=== PATIENT | female | born 1955 | race Caucasian/White ===

== ENCOUNTER 2017-03-01 13:10 | Emergency (ER) | payer BC ==
[2017-03-01] MEDS ORDERED: PROMETHAZINE HCL 25 MG TABLET PO ONE (13:53)
[2017-03-01] MEDS ORDERED: DIPHENHYDRAMINE HCL 50 MG/ML VIAL IV ONE ×2 (13:54→18:36)
--- NOTE | 2017-03-01 13:54 | ER Document Report ---
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 Patient was recently diagnosed with a possible UTI and started on Bactrim last night. She states within 10 minutes, she started having diffuse itching followed by cramping and nausea. TRAVEL OUTSIDE OF THE [place] IN LAST 30 DAYS: No - Related Data Allergies/Adverse Reactions: aspirin [Aspirin] Adverse Reaction (Mild, Verified 03/01/17 13:17) rash Sulfa (Sulfonamide Antibiotics) Adverse Reaction (Verified 03/01/17 13:51) Past Medical History - Social History Frequency of alcohol use: None Drug Abuse: None Renal/ Medical History: Denies: Hx Peritoneal Dialysis Malignancy Medical History: Reports: Hx Cervical Cancer GI Medical History: Reports: Hx Gastroesophageal Reflux Disease Musculoskeltal Medical History: Reports Hx Arthritis Psychiatric Medical History: Reports: Hx Depression - anxiety Past Surgical History: Reports: Hx Appendectomy, Hx Section, Hx Hysterectomy, Hx Tonsillectomy - Immunizations Hx Diphtheria, Pertussis, Tetanus Vaccination: Yes Physical Exam - Vital signs Vitals: Temp Pulse Resp BP Pulse Ox 98.9 F 86 20 108/81 99 03/01/17 13:17 03/01/17 13:17 03/01/17 13:17 03/01/17 13:17 03/01/17 13:17 Course - Vital Signs Vital signs: Temp Pulse Resp BP Pulse Ox 98.9 F 86 20 108/81 99 03/01/17 13:17 03/01/17 13:17 03/01/17 13:17 03/01/17 13:17 03/01/17 13:17
[2017-03-01] MEDS: NORMAL SALINE 1000 ML 1,000 ML IV PRN ×2 (14:53→16:40)
[2017-03-01 14:56] LABS: ABSOLUTE EOSINOPHILS # (AUTO) 0.1 10^3/uL (0.0-0.6); ABSOLUTE LYMPHOCYTES (AUTO) 0.9 10^3/uL (0.5-4.7); ABSOLUTE MONOCYTES (AUTO) 0.3 10^3/uL (0.1-1.4); ABSOLUTE NEUT (AUTO) 4.6 10^3/uL (1.7-8.2); BASOPHILS % (AUTO) 0.2 % (0-2); EOSINOPHILS % (AUTO) 1.5 % (0-6); HEMATOCRIT 43.9 % (36.0-47.0); HEMOGLOBIN 14.8 g/dL (12.0-15.5); HGB HCT DIFFERENCE 0.5; MEAN CORPUSCULAR HEMOGLOBIN 27.8 pg (27.0-33.4); MEAN CORPUSCULAR HGB CONC 33.6 g/dL (32.0-36.0); MEAN CORPUSCULAR VOLUME 83 fl (80-97); MONOCYTES % (AUTO) 5.9 % (3-13); RED BLOOD COUNT 5.32 10^6/uL (3.72-5.28); RED CELL DISTRIBUTION WIDTH 14.6 % (11.5-14.0); SEGMENTED NEUTROPHILS % (AUTO) 77.4 % (42-78); WHITE BLOOD COUNT 5.9 10^3/uL (4.0-10.5)
[2017-03-01 15:09] LABS: ALANINE AMINOTRANSFERASE 55 U/L (9-52); ALBUMIN 4.5 g/dL (3.5-5.0); ALKALINE PHOSPHATASE 92 U/L (38-126); ANION GAP 10 (5-19); ASPARTATE AMINO TRANSFERASE 38 U/L (14-36); BILIRUBIN,DIRECT 0.6 mg/dL (0.0-0.4); BILIRUBIN,TOTAL 1.1 mg/dL (0.2-1.3); BLOOD UREA NITROGEN 8 mg/dL (7-20); CALCIUM 10.1 mg/dL (8.4-10.2); CARBON DIOXIDE 26 mmol/L (22-30); CHLORIDE 102 mmol/L (98-107); CREATININE RESULT 0.86 mg/dL (0.52-1.25); GLUCOSE 110 mg/dL (75-110); POTASSIUM 3.7 mmol/L (3.6-5.0); SODIUM 138.1 mmol/L (137-145)
[2017-03-01 15:42] LABS: APPEARANCE,URINE CLEAR; BILIRUBIN,URINE NEGATIVE (NEGATIVE); GLUCOSE, URINE NEGATIVE (NEGATIVE); KETONES,URINE NEGATIVE (NEGATIVE); LEUKOCYTE ESTERASE,URINE NEGATIVE (NEGATIVE); NITRITE,URINE NEGATIVE (NEGATIVE); PROTEIN,URINE NEGATIVE (NEGATIVE); URINE SPECIFIC GRAVITY 1.013; UROBILINOGEN,URINE NEGATIVE mg/dL (<2.0)
--- NOTE | 2017-03-01 15:57 | ER Document Report ---
ED General - General Mode of Arrival: Ambulatory Information source: Patient, Relative - Spouse TRAVEL OUTSIDE OF THE [place] IN LAST 30 DAYS: No - HPI Onset: Yesterday - Refer to HPI notes Quality of pain: Cramping Similar symptoms previously: No Recently seen / treated by doctor: Yes <FELISA CHRISTENSEN - Last Filed: 03/01/17 19:21> <SHELIAANDREINAMONY - Last Filed: 03/01/17 21:37> - General Chief Complaint: Headache Stated Complaint: HEADACHE,BACK PAIN,NAUSEA Notes: Patient is a 62-year-old female presented to the emergency department for itching, cramping, and headache after taking Bactrim. Patient states that she took her first dose of Bactrim last night around 18:00 and her symptoms were onset 10 minutes after. Patient states she was diagnosed with a UTI by [facility] and prescribed Bactrim. Patient only took the initial dose yesterday and has not taken any further doses. Patient states that she had some itching on her hands and forearms and the right side of her body had muscle cramps. Patient also complains to a headache which she describes as pressure and relates her head pain to a previous migraine. Patient states that she does not get migraines or headaches like this when she has her chronic nerve pain. Patient does complain of some dizziness which is chronic. Patient states that she has chronic neuropathic pain to the right side of her body from a previous fall. Patient denies taking any muscle examiners. (FELISA CHRISTENSEN) - Related Data Allergies/Adverse Reactions: aspirin [Aspirin] Adverse Reaction (Mild, Verified 03/01/17 13:17) rash Sulfa (Sulfonamide Antibiotics) Adverse Reaction (Verified 03/01/17 13:51) Past Medical History - General Information source: Patient - Social History Smoking Status: Never Smoker Frequency of alcohol use: None Drug Abuse: None Family History: Reviewed & Not Pertinent Patient has suicidal ideation: No Patient has homicidal ideation: No Renal/ Medical History: Denies: Hx Peritoneal Dialysis Malignancy Medical History: Reports: Hx Cervical Cancer GI Medical History: Reports: Hx Gastroesophageal Reflux Disease Musculoskeltal Medical History: Reports Hx Arthritis Psychiatric Medical History: Reports: Hx Depression - anxiety Past Surgical History: Reports: Hx Appendectomy, Hx Section, Hx Hysterectomy, Hx Tonsillectomy - Immunizations Hx Diphtheria, Pertussis, Tetanus Vaccination: Yes <FELISA CHRISTENSEN - Last Filed: 03/01/17 19:21> Review of Systems - Review of Systems Constitutional: No symptoms reported EENT: No symptoms reported Cardiovascular: No symptoms reported Respiratory: No symptoms reported Gastrointestinal: No symptoms reported Genitourinary: No symptoms reported Female Genitourinary: No symptoms reported Musculoskeletal: See HPI Skin: See HPI, Change in color Hematologic/Lymphatic: No symptoms reported Neurological/Psychological: See HPI, Headaches -: Yes All other systems reviewed and negative <MARTÍNFELISA RICCI - Last Filed: 03/01/17 19:21> Physical Exam <MARTÍNRADHAMESKARMENFELISA - Last Filed: 03/01/17 19:21> <MONY LONDONO - Last Filed: 03/01/17 21:37> - Vital signs Vitals: Temp Pulse Resp BP Pulse Ox 98.9 F 86 20 108/81 99 03/01/17 13:17 03/01/17 13:17 03/01/17 13:17 03/01/17 13:17 03/01/17 13:17 - Notes Notes: GENERAL: Alert, interacts well. No acute distress. HEAD: Normocephalic, atraumatic. EYES: Pupils equal, round, and reactive to light. Extraocular movements intact. ENT: Oral mucosa moist, tongue midline. No drooling NECK: Right-sided paracervical tenderness to palpation. Full range of motion. Supple. Trachea midline. LUNGS: Clear to auscultation bilaterally, no wheezes, rales, or rhonchi. No respiratory distress. HEART: Regular rate and rhythm. No murmurs, gallops, or rubs. ABDOMEN: Soft, non-tender. Non-distended. Bowel sounds present in all 4 quadrants. EXTREMITIES: Moves all 4 extremities spontaneously. No edema, radial and dorsalis pedis pulses 2/4 bilaterally. No cyanosis. NEUROLOGICAL: Alert and oriented x3. Photophobia. Normal speech. Cranial nerves II through XII grossly intact. Biceps and patellar DTRs 2+ bilaterally. PSYCH: Normal affect, normal mood. SKIN: Warm, dry, normal turgor. No hives, rashes or lesions noted. (FELISA CHRISTENSEN) Course - Laboratory Result Diagrams: 03/01/17 14:30 03/01/17 14:30 <FELISA CHRISTENSEN - Last Filed: 03/01/17 19:21> - Laboratory Result Diagrams: 03/01/17 14:30 03/01/17 14:30 <MONY LONDONO - Last Filed: 03/01/17 21:37> - Vital Signs Vital signs: Temp Pulse Resp BP Pulse Ox 98.9 F 67 18 144/86 H 99 03/01/17 13:17 03/01/17 21:20 03/01/17 21:20 03/01/17 21:20 03/01/17 21:20 - Laboratory Laboratory results interpreted by me: 03/01/17 03/01/17 03/01/17 14:30 14:30 14:30 RBC 5.32 H RDW 14.6 H Direct Bilirubin 0.6 H AST 38 H ALT 55 H Urine Blood SMALL H Discharge <FELISA CHRISTENSEN - Last Filed: 03/01/17 19:21> <MONY LONDONO - Last Filed: 03/01/17 21:37> - Discharge Clinical Impression: Muscle cramping Migraine Qualifiers: Migraine type: without aura Status migrainosus presence: with status migrainosus Intractability: not intractable Qualified Code(s): G43.001 - Migraine without aura, not intractable, with status migrainosus Adverse reaction to sulfa antibiotic Qualifiers: Encounter type: initial encounter Qualified Code(s): T37.0X5A - Adverse effect of sulfonamides, initial encounter Hypertension Qualifiers: Hypertension type: essential hypertension Qualified Code(s): I10 - Essential ( primary) hypertension Condition: Stable Disposition: HOME, SELF-CARE Additional Instructions: Today we did not see any sign of infection or bleeding in her brain. We treated her headache initially with Toradol, Compazine and Benadryl. We later treated with Haldol and Benadryl. The Haldol and Benadryl seemed to work better for you. Please drink plenty of fluids and do not skip any of her home medications. Please follow-up with your primary care physician within the next several days. Forms: Elevated Blood Pressure Scribe Attestation: 03/01/17 21:37 I personally performed the services described in the documentation, reviewed and edited the documentation which was dictated to the scribe in my presence, and it accurately records my words and actions. (MONY LONDONO) Scribe Documentation - Scribe Written by Matteo:: Matteo Doll, 03/01/17 19:30 acting as scribe for :: [facility] <FELISA CHRISTENSEN - Last Filed: 03/01/17 19:21>
[2017-03-01] MEDS ORDERED: PROCHLORPERAZINE EDISYLATE INJ 10 MG/2 ML VIAL IV ONE (16:22)
[2017-03-01] MEDS ORDERED: KETOROLAC TROMETHAMINE INJ/PF 30 MG/1 ML SDV IV ONE (16:22)
[2017-03-01] MEDS ORDERED: HALOPERIDOL LACTATE INJ 5 MG/1 ML VIAL IV ONE (18:36)
[2017-03-01 21:21] VITALS: BP 144/86
== END 2017-03-01 21:15 | disposition home or self-care (01) ==
LOC: ER 13:10
DX: G43.001 Migraine without aura, not intractable, with status migrainosus (principal); L29.8 Other pruritus; R25.2 Cramp and spasm; T37.0X5A Adverse effect of sulfonamides, initial encounter; I10 Essential (primary) hypertension; N39.0 Urinary tract infection, site not specified; R42 Dizziness and giddiness; Z88.2 Allergy status to sulfonamides; Z85.41 Personal history of malignant neoplasm of cervix uteri
CPT/HCPCS: 96376; 99284; 96361; 96374; 96375; 36415; 87086; 85025; 80053; 81001; 70450; J1200; J1630; J1885; J0780; J7030

== ENCOUNTER 2019-12-13 17:50 | Emergency (ER) | payer BC ==
--- NOTE | 2019-12-13 18:59 | RADIOLOGY REPORT (SQ) ---
EXAM DESCRIPTION: ANKLE LEFT COMPLETE COMPLETED DATE/TIME: 12/13/2019 6:23 pm REASON FOR STUDY: bed 1 s/p fall +swelling/deformity with tenderness COMPARISON: None. NUMBER OF VIEWS: Three views. TECHNIQUE: AP, lateral, and oblique radiographic images acquired of the left ankle. LIMITATIONS: None. FINDINGS: MINERALIZATION: Normal. BONES: Acute nondisplaced spiral fracture of the distal fibula. There is no other fracture. The ank le mortise and talar dome are intact. JOINTS: No effusions. SOFT TISSUES: Soft tissue swelling adjacent to the distal fibular fracture. OTHER: No other finding. IMPRESSION: Acute nondisplaced spiral fracture of the distal fibula. TECHNICAL DOCUMENTATION: JOB ID: [id number] 2010 [employer]- All Rights Reserved Reading location - IP/workstation name: [email or web address]
--- NOTE | 2019-12-13 19:02 | ER Document Report ---
ED General - General Chief Complaint: Fall Injury Stated Complaint: LEFT ANKLE PAIN Time Seen by Provider: 12/13/19 18:55 Primary Care Provider: ARMANI VANESSA MD [Primary Care Provider] - Follow up as needed Mode of Arrival: Medic Information source: Patient TRAVEL OUTSIDE OF THE [place] IN LAST 30 DAYS: No - HPI Onset: Just prior to arrival Onset/Duration: Sudden Quality of pain: Pressure, Sharp Severity: Severe Pain Level: 5 Associated symptoms: Other - ankle swelling and bruising Exacerbated by: Movement, Other - weight bearing Relieved by: Other - rest and elevation Similar symptoms previously: No Recently seen / treated by doctor: No Notes: 64 year old female with a history of Arthritis, GERD, Depression here for left ankle pain, swelling, bruising and left great toe pain which all started after she mistepdd and fell landing on her ankle. The patient was unable to ambulate after the fall. The patient denies numbness or tingling in her affected foot. - Related Data Allergies/Adverse Reactions: aspirin [Aspirin] Adverse Reaction (Mild, Verified 12/13/19 18:04) rash Sulfa (Sulfonamide Antibiotics) Adverse Reaction (Verified 12/13/19 18:04) Past Medical History - General Information source: Patient - Social History Smoking Status: Never Smoker Chew tobacco use (# tins/day): No Frequency of alcohol use: None Drug Abuse: None Family History: Reviewed & Not Pertinent Patient has suicidal ideation: No Patient has homicidal ideation: No Renal/ Medical History: Denies: Hx Peritoneal Dialysis Malignancy Medical History: Reports: Hx Cervical Cancer GI Medical History: Reports: Hx Gastroesophageal Reflux Disease Musculoskeletal Medical History: Reports Hx Arthritis Psychiatric Medical History: Reports: Hx Depression - anxiety Past Surgical History: Reports: Hx Appendectomy, Hx Section, Hx Hysterectomy, Hx Tonsillectomy - Immunizations Hx Diphtheria, Pertussis, Tetanus Vaccination: Yes Review of Systems - Review of Systems Constitutional: No symptoms reported EENT: No symptoms reported Cardiovascular: No symptoms reported Respiratory: No symptoms reported Gastrointestinal: No symptoms reported Genitourinary: No symptoms reported Female Genitourinary: No symptoms reported Musculoskeletal: Joint pain - left ankle and left great toe, Ankle swelling - left sided (lateral) with bruising and pain Skin: Other - bruising of skin around left lateral ankle Hematologic/Lymphatic: No symptoms reported Neurological/Psychological: No symptoms reported -: Yes All other systems reviewed and negative Physical Exam - Vital signs Vitals: Temp Pulse Resp BP Pulse Ox 97.8 F 67 18 145/78 H 97 12/13/19 18:53 12/13/19 18:53 12/13/19 18:53 12/13/19 18:53 12/13/19 18:53 - Notes Notes: GENERAL: Well-appearing, well-nourished and in no acute distress. HEAD: Atraumatic, normocephalic. EYES: Pupils equal round and reactive to light, extraocular movements intact, sclera anicteric, conjunctiva are normal. ENT: TMs normal, nares patent, oropharynx clear without exudates. Moist mucous membranes. NECK: Normal range of motion, supple without lymphadenopathy or JVD. LUNGS: Breath sounds clear to auscultation bilaterally and equal. No wheezes rales or rhonchi. HEART: Regular rate and rhythm without murmurs, rubs or gallops. ABDOMEN: Soft, nontender, normoactive bowel sounds. No guarding, no rebound. No masses appreciated. EXTREMITIES: Tender over left lateral ankle with swelling and bruising. Decreased range of motion in left ankle due to pain. Tender over left great toe with no swelling or bruising. No clubbing or cyanosis. 2+ DP and PT pulses. NEUROLOGICAL: Cranial nerves II through XII grossly intact. Normal speech, normal gait. PSYCH: Normal mood, normal affect. SKIN: Warm, Dry, normal turgor, no rashes or lesions noted. Course - Re-evaluation Re-evalutation: 12/13/19 19:12 The patient has a nondisplaced spiral fracture of her left distal fibula. Will have nursing splint the ankle and supply crutches. Will refer patient to orthopedics (Dr. Garay is interventional pain physician) as an outpatient. Patient told not to weight bear. - Vital Signs Vital signs: Temp Pulse Resp BP Pulse Ox 97.8 F 67 18 145/78 H 97 12/13/19 18:53 12/13/19 18:53 12/13/19 18:53 12/13/19 18:53 12/13/19 18:53 - Diagnostic Test Radiology reviewed: Image reviewed, Reports reviewed Discharge - Discharge Clinical Impression: Fibula fracture Qualifiers: Encounter type: initial encounter Fibula location: lateral malleolus Fracture type: closed Fracture alignment: nondisplaced Laterality: left Qualified Code(s): S82.65XA - Nondisplaced fracture of lateral malleolus of left fibula, initial encounter for closed fracture Condition: Stable Disposition: HOME, SELF-CARE Instructions: Fracture of Distal Fibula ([facility]), Use of Crutches ([facility]) Additional Instructions: Keep the splint on until cleared by Orthopedics. Follow up with Dr. Garay or with one of his colleagues. Use tylenol and motrin for pain and [place] for pain not well controlled. Prescriptions: Hydrocodone/Acetaminophen [[place] 5-325 mg Tablet] 1 tab PO Q8H PRN #10 tablet PRN Reason: Referrals: ARMANI VANESSA MD [Primary Care Provider] - Follow up as needed SALLIE GARAY MD [ACTIVE STAFF] - Follow up as needed
--- NOTE | 2019-12-13 19:33 | RADIOLOGY REPORT (SQ) ---
EXAM DESCRIPTION: FOOT LEFT COMPLETE COMPLETED DATE/TIME: 12/13/2019 7:25 pm REASON FOR STUDY: eval for trauma to first metatarsal COMPARISON: None. NUMBER OF VIEWS: Three views. TECHNIQUE: AP, lateral and oblique radiographic images acquired of the left foot. LIMITATIONS: None. FINDINGS: MINERALIZATION: Normal. BONES: No acute fracture or dislocation. No worrisome bone lesions. JOINTS: No effusions. SOFT TISSUES: No soft tissue swelling. No foreign body. OTHER: No other significant finding. IMPRESSION: NEGATIVE STUDY OF THE LEFT FOOT. NO RADIOGRAPHIC EVIDENCE OF ACUTE INJURY. TECHNICAL DOCUMENTATION: JOB ID: [id number] 2010 [employer]- All Rights Reserved Reading location - IP/workstation name: [email or web address]
[2019-12-13 20:03] VITALS: BP 139/68
== END 2019-12-13 21:36 | disposition home or self-care (01) ==
LOC: ER 17:50
DX: S82.65XA Nondisplaced fracture of lateral malleolus of left fibula, initial encounter for closed fracture (principal); W19.XXXA Unspecified fall, initial encounter; Z88.6 Allergy status to analgesic agent; Z88.2 Allergy status to sulfonamides; Z85.41 Personal history of malignant neoplasm of cervix uteri; Z90.710 Acquired absence of both cervix and uterus
CPT/HCPCS: 99283

== ENCOUNTER 2020-04-12 19:07 | Emergency (ER) | payer BC ==
[2020-04-12] MEDS ORDERED: ONDANSETRON 4 MG TAB.RAPDIS PO ONE (20:01)
[2020-04-12] MEDS ORDERED: HYDROXYZINE HCL 10 MG TABLET PO ONE (20:01)
[2020-04-12] MEDS ORDERED: NORMAL SALINE 1000 ML 1,000 ML IV ONE (20:19)
--- NOTE | 2020-04-12 20:22 | ER Document Report ---
ED General - General Chief Complaint: Nausea/Vomiting/Diarrhea Stated Complaint: VOMITING,DIARRHEA,WEAKNESS,FEVER Time Seen by Provider: 04/12/20 19:53 Primary Care Provider: ARMANI VANESSA MD [Primary Care Provider] - Follow up as needed Notes: Patient is a 65-year-old male presenting with about 5 days of diarrhea and vomiting. Diarrhea has tapered off the vomiting continues and Keeping things down. She feels fatigued has body aches and developed a cough today. No shortness of breath. No abdominal pain or cramping. History of some kind of surgery where they "cut my intestines." Manifested by an infraumbilical vertical incision. Passing gas today and denies distention. TRAVEL OUTSIDE OF THE [place] IN LAST 30 DAYS: No - Related Data Allergies/Adverse Reactions: aspirin [Aspirin] Adverse Reaction (Mild, Verified 12/13/19 18:04) rash Sulfa (Sulfonamide Antibiotics) Adverse Reaction (Verified 12/13/19 18:04) Past Medical History - General Information source: Patient - Social History Smoking Status: Former Smoker Family History: Reviewed & Not Pertinent Patient has homicidal ideation: No Renal/ Medical History: Denies: Hx Peritoneal Dialysis Malignancy Medical History: Reports: Hx Cervical Cancer GI Medical History: Reports: Hx Gastroesophageal Reflux Disease Musculoskeletal Medical History: Reports Hx Arthritis Psychiatric Medical History: Reports: Hx Depression - anxiety Past Surgical History: Reports: Hx Appendectomy, Hx Section, Hx Hysterectomy, Hx Tonsillectomy - Immunizations Hx Diphtheria, Pertussis, Tetanus Vaccination: Yes Review of Systems - Review of Systems Notes: REVIEW OF SYSTEMS GEN: Hussain and aches with subjective fevers s ENT: Denies sore throat, nasal discharge, ear pain EYES: Denies blurry vision, eye pain, discharge CV: Denies chest pain, palpitations, edema RESP: Denies cough, shortness of breath, wheezing GI: HPI MSK: Denies joint pain/swelling, edema, SKIN: Denies rash, skin lesions LYMPH: Denies swollen glands/lymph nodes NEURO: Denies headache, focal weakness or numbness, dizziness PSYCH: Denies depression, suicidal or homicidal ideation PHYSICAL EXAMINATION General: No acute distress, well-nourished Head: Atraumatic, normocephalic ENT: Mouth normal, oropharynx moist, no exudates or tonsillar enlargement Eyes: Conjunctiva normal, pupils equal, lids normal Neck: No JVD, supple, no guarding CVS: Normal rate, regular rhythm, no murmurs Resp: No resp distress, equal and normal breath sounds bilaterally GI: Nondistended, soft, no tenderness to palpation, no rebound or guarding Ext: No deformities, no edema, normal range of motion in upper and lower ext Back: No CVA or midline TTP Skin: Poor turgor Lymphatic: No lymphadeopathy noted Neuro: Awake, alert. Face symmetric. GCS 15. Physical Exam - Vital signs Vitals: Temp Pulse Resp BP Pulse Ox 99.0 F 84 20 101/71 95 04/12/20 19:48 04/12/20 19:48 04/12/20 19:48 04/12/20 19:48 04/12/20 19:48 Course - Re-evaluation Re-evalutation: 04/12/20 22:49 65-year-old lady presents with vomiting diarrhea diarrhea is resolving vomiting is not occurring in the ER. She has no abdominal pain. She has a prior surgery but has no distention good bowel sounds with no tenderness on exam so I think obstruction is unlikely Labs were done. Clinically dehydrated, labs match. Given IV fluids antiemetics in the ED tolerated p.o. Discharged with COVID precautions as this may reflect COVID especially given her mild leukopenia. I have discussed with the patient there likely diagnosis, aftercare plan, follow-up plans and my usual and customary return precautions. They verbalized understanding of this. - Vital Signs Vital signs: Temp Pulse Resp BP Pulse Ox 99.0 F 84 20 101/71 95 04/12/20 19:48 04/12/20 19:48 04/12/20 19:48 04/12/20 19:48 04/12/20 19:48 - Laboratory Result Diagrams: 04/12/20 21:12 04/12/20 21:12 Laboratory results interpreted by me: 04/12/20 04/12/20 21:12 21:12 WBC 3.0 L Sodium 134.1 L Chloride 96 L Carbon Dioxide 31 H Discharge - Discharge Clinical Impression: Viral syndrome Condition: Good Disposition: HOME, SELF-CARE Instructions: Viral Syndrome ([facility]), Diarrhea, Nonspecific ([facility]) Additional Instructions: You have been evaluated for complaints or symptoms which could reflect infection with coronavirus/Covid-19 disease. Your test is pending and should be back between 24-48 hours, until then you should assume you are infected. Please stay at home with minimal interaction to others, wash your hands, practice social distancing while at home, and remained at home without any travel outside of the home for: 1. At least 3 days (72 hours) have passed since recovery defined as resolution of fever without the use of fever-reducing medications and improvement in respiratory symptoms (e.g., cough, shortness of breath) AND 2. At least 7 days have passed since symptoms first appeared. Prescriptions: Ondansetron [Zofran Odt 4 mg Tablet] 1 - 2 tab PO Q4H PRN #15 tab.rapdis PRN Reason: For Nausea/Vomiting Referrals: ARMANI VANESSA MD [Primary Care Provider] - Follow up as needed
[2020-04-12 22:05] LABS: ABSOLUTE LYMPHOCYTES (AUTO) 0.6 10^3/uL (0.5-4.7); ABSOLUTE MONOCYTES (AUTO) 0.3 10^3/uL (0.1-1.4); ABSOLUTE NEUT (AUTO) 2.2 10^3/uL (1.7-8.2); BASOPHILS % (AUTO) 0.4 % (0-2); HEMATOCRIT 43.7 % (36.0-47.0); TOTAL CELLS COUNTED % (AUTO) 100 %
[2020-04-12 22:14] LABS: ANION GAP 7 (5-19); BLOOD UREA NITROGEN 13 mg/dL (7-20); CALCIUM 9.7 mg/dL (8.4-10.2); CARBON DIOXIDE 31 mmol/L (22-30); CHLORIDE 96 mmol/L (98-107); GLUCOSE 105 mg/dL (75-110); POTASSIUM 3.6 mmol/L (3.6-5.0)
[2020-04-12 22:24] LABS: EOSINOPHILS % (AUTO) 0.1 % (0-6); LYMPHOCYTES % (AUTO) 18.6 % (13-45); MEAN CORPUSCULAR HEMOGLOBIN 28.7 pg (27.0-33.4); MEAN CORPUSCULAR HGB CONC 34.4 g/dL (32.0-36.0); MEAN CORPUSCULAR VOLUME 83 fl (80-97); MONOCYTES % (AUTO) 8.7 % (3-13); PLATELET COUNT 161 10^3/uL (150-450); RED BLOOD COUNT 5.24 10^6/uL (3.72-5.28); RED CELL DISTRIBUTION WIDTH 13.7 % (11.5-14.0); SEGMENTED NEUTROPHILS % (AUTO) 72.2 % (42-78)
[2020-04-12 22:51] VITALS: BP 110/68
== END 2020-04-12 23:10 | disposition home or self-care (01) ==
LOC: ER 19:07
DX: U07.1 COVID-19 (principal); R11.2 Nausea with vomiting, unspecified; R19.7 Diarrhea, unspecified; R53.81 Other malaise; R52 Pain, unspecified; R05 Cough; Z87.891 Personal history of nicotine dependence; Z85.41 Personal history of malignant neoplasm of cervix uteri; Z87.19 Personal history of other diseases of the digestive system
CPT/HCPCS: 99283; 96360; 36415; 85025; 87635; 80048; S0119; J7030; C9803